=== PATIENT | male | born 1995 | race Caucasian/White ===

== ENCOUNTER 2023-10-30 18:13 | Emergency (ER) | payer OTHER ==
[2023-10-30 18:18] VITALS: BP 132/95; O2SAT 98
--- NOTE | 2023-10-30 18:34 | ED Physician Documentation ---
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 No other injuries. Declines pain medication on initial evaluation. PD PAST MEDICAL HISTORY - Past Medical History Past Medical History: No Cardiovascular: None Respiratory: None Neuro: None Endocrine/Autoimmune: None GI: None : None HEENT: None Psych: None Musculoskeletal: None Derm: None - Past Surgical History Past Surgical History: No - Present Medications Home Medications: Ambulatory Orders Medication Instructions Recorded Confirmed No Known Home Medications 10/30/23 10/30/23 - Allergies Allergies/Adverse Reactions: Allergies Allergy/AdvReac Type Severity Reaction Status Date / Time No Known Drug Allergies Allergy Verified 10/30/23 18:15 - Social History Does the pt smoke?: No Smoking Status: Never smoker Does the pt drink ETOH?: Yes Does the pt have substance abuse?: No - Immunizations Immunizations are current?: Yes - POLST Patient has POLST: No PD ED PE NORMAL - Vitals Vital signs reviewed: Yes - General General: Alert and oriented X 3, No acute distress - Extremities Extremities: Other (Mild tenderness of the interphalangeal joint of the right thumb. No distal tenderness or tenderness at the MCP. No subungual hematoma. Normal neurovascular function at the tip.) - Neuro Neuro: Alert and oriented X 3, Normal speech - Psych Psych: Normal mood, Normal affect Results - Vitals Vitals: Vital Signs - 24 hr 10/30/23 18:15 Temperature 36.8 C Heart Rate 100 Respiratory 16 Rate Blood Pressure 132/95 H O2 Saturation 98 Oxygen O2 Source Room air - Rads (name of study) 3v XR R hand- see MDM Relevant Findings:: Final report received, EMP independent interpretation of test PD Medical Decision Making - ED course ED course: Crush inj R thumb, note XR read, I do not see any abnormality there though and has FROM so would treat without immobilization. Departure - Departure Disposition: 01 Home, Self Care Clinical Impression: Crush injury to thumb Qualifiers: Encounter type: initial encounter Laterality: right Qualified Code(s): S67.01XA - Crushing injury of right thumb, initial encounter Condition: Good Record reviewed to determine appropriate education?: Yes Instructions: ED Crush Injury Finger No Fx Comments: No x-ray abnormality. Tylenol and/or ibuprofen as needed for pain. You can ice it as well. Return for new or worsening symptoms. Follow-up with your doctor in a week if not improved. Forms: PCP List Discharge Date/Time: 10/30/23 18:58
--- NOTE | 2023-10-30 19:20 | XRAY Report ---
PROCEDURE: Finger(s) RT INDICATIONS: thumb inj TECHNIQUE: AP hand, 2 views of the first finger(s) acquired. COMPARISON: None. FINDINGS: Bones: No displaced fracture or dislocation. There is a questionable nondisplaced volar plate bone f ragment at the distal phalanx. Soft tissues: There may be soft tissue swelling. IMPRESSION: Questionable nondisplaced volar plate bone fragment at the distal phalanx. Correlate with location of injury. No displaced injury identified. If there is high concern for occult injury, consider repeat radiography or cross-sectional imaging. Reviewed by: Lew Greene MD on 10/30/2023 7:19 PM PST Approved by: Lew Greene MD on 10/30/2023 7:19 PM PST Station ID: [id number]
== END 2023-10-30 18:58 | disposition home or self-care (01) ==
LOC: ED 18:13
DX: S67.01XA Crushing injury of right thumb, initial encounter (principal); W23.0XXA Caught, crushed, jammed, or pinched between moving objects, initial encounter
CPT/HCPCS: 99283